=== PATIENT | female | born 1985 | race Caucasian/White ===

== ENCOUNTER 2024-03-08 22:45 | Emergency (ER) | payer SELFPAY ==
[~2024-03-08] VITALS: Ht 165.1 cm; Wt 47.0 kg
[2024-03-08 22:52] VITALS: O2SAT 99
[2024-03-08 23:15] VITALS: BP 140/91; PULSE 65; RESP 14; TEMP 98.2
== END 2024-03-09 00:20 | disposition home or self-care (01) ==
LOC: ER 22:45
DX: T50.901A Poisoning by unspecified drugs, medicaments and biological substances, accidental (unintentional), initial encounter (principal); X58.XXXA Exposure to other specified factors, initial encounter; Y93.89 Activity, other specified; Y92.89 Other specified places as the place of occurrence of the external cause; Y99.8 Other external cause status
CPT/HCPCS: 93005; 99283